=== PATIENT | male | born 1940 | race Caucasian/White ===

== ENCOUNTER → 2024-08-11 | Outpatient (CLI) | payer OTHER, SELFPAY ==
[2024-08-11 09:44] LABS: Basophils # (Auto) 0.1 Thou/mm3 (0.0-0.2); Basophils % (Auto) 1 % (0-2.5); Eosinophils # (Auto) 0.2 Thou/mm3 (0.0-0.5); Eosinophils % (Auto) 2 % (0-10); Hematocrit 38.6 % (41.0-53.0); Hemoglobin 12.7 g/dL (13.5-16.0); Immature Granulocytes % (Auto) 1 % (0-0); Immature Granulocytes Auto 0.04 Thou/mm3 (0.00-0.00); Lymphocytes # (Auto) 2.5 Thou/mm3 (1.0-4.8); Lymphocytes % (Auto) 31 % (10-50); Mean Corpuscular HGB Conc 32.9 g/dl (31.0-37.0); Mean Corpuscular Volume 88 fL (80-100); Monocytes # (Auto) 0.6 Thou/mm3 (0.0-0.8); Monocytes % (Auto) 7 % (0-12); Neutrophils # (Auto) 4.7 Thou/mm3 (1.8-7.7); Neutrophils % (Auto) 59 % (37-80); Nucleated Red Blood Cell % 0 /100 WBC (0); Platelet Count 282 Thou/mm3 (140-440); RDW Standard Deviation 44.1 fL (35.1-43.9); Red Blood Count 4.38 Miln/mm3 (4.50-5.90)
[2024-08-11 09:55] LABS: Collection Type, Urine Clean Catch
[2024-08-11 10:05] LABS: Alanine Aminotransferase 22 U/L (10-49); Albumin, Serum 4.3 gm/dL (3.4-4.8); Albumin/Globulin Ratio 1.7 (1.2-2.2); Alkaline Phosphatase 55 U/L (46-116); Anion Gap 8 (7-16); Aspartate Amino Transferase 17 U/L (0-34); BUN/Creatinine Ratio 14 Ratio (12-20); Bilirubin,Total 0.4 mg/dL (0.3-1.2); Blood Urea Nitrogen 14 mg/dL (9-23); Calcium 8.9 mg/dL (8.3-10.6); Calcium (Corrected) 8.9 mg/dL (8.5-10.1); Carbon Dioxide 27.2 mMol/L (20.0-31.0); Cardiac Risk Estimate 3.5 RATIO (4.0-6.7); Chloride 103 mMol/L (98-107); Cholesterol 90 mg/dL (132-200); Globulin 2.5 gm/dL (2.3-3.5); Glucose 116 mg/dL (74-106); HDL Cholesterol 26 mg/dL (40-60); LDL Cholesterol,Calculated 35 mg/dL (0-130); Osmolality,Calculated 277 (275-295); Potassium 3.9 mMol/L (3.4-5.1); Sodium 138 mMol/L (136-145); Thyroid Stimulating Hormone 2.18 uIU/mL (0.55-4.78); Total Protein 6.8 gm/dL (5.7-8.2); Triglycerides 143 mg/dL (30-150); eGFR > 60 See Note
[2024-08-11 11:07] LABS: Bilirubin,Urine Negative (Negative); Blood,Urine Negative (Negative); Clarity,Urine Hazy (Clear/Hazy); Color,Urine Lt-Yellow (Lt Yel-Yel); Glucose, Urine Negative (Negative); Ketones,Urine Negative (Negative); Leukocyte Esterase,Urine Positive (Negative); Nitrite,Urine Negative (Negative); Protein,Urine 1+ (Neg - Trace); RBC,Urine 7 /hpf (0-3); Specific Gravity,Urine 1.022 (1.001-1.035); Squamous Epithelial Cell,Urine 1 /hpf (0-5); Urobilinogen,Urine Negative mg/dL (0.0-1.0); WBC,Urine 25 /hpf (0-5)
[2024-08-14 17:48] LABS: PSA, Free 0.51 ng/mL; PSA, Total 1.6 ng/mL (< OR = 4.0)
== END | disposition home or self-care (01) ==
LOC: COPL 08:57
PROVIDERS: PCP Family Medicine; Referring Provider Family Medicine; Visit Provider Family Medicine
DX: I10 Essential (primary) hypertension (principal); E78.5 Hyperlipidemia, unspecified; R97.20 Elevated prostate specific antigen [PSA]
CPT/HCPCS: 36415; 80053; 80061; 81001; 84153; 84154; 84443; 85025

== ENCOUNTER → 2024-11-12 | Outpatient (CLI) | payer OTHER, SELFPAY ==
--- NOTE | 2024-11-12 13:30 | XR_ITS ---
Examination: Testicular sonography complete TECHNIQUE: Grayscale sonographic images testes, assessment arterial inflow venous outflow Doppler spectral analysis carful analysis Exam date and time: November 12, 2024 1354 hours INDICATIONS: Right testicular swelling beginning 2 weeks ago. FINDINGS: Right testis 4.6 x 2.5 x 3.4 cm Epididymis 16mm Appendix testis 6 mm Arterial flow testicle. No testicular mass Moderate hydrocele Left testis 4.0 x 2.4 x 2.6 cm Epididymis 23 mm Multiple left epididymal cysts, the largest 6 x 6 mm Arterial flow testicle No testicular mass although mildly heterogeneous echogenicity Mild hydrocele IMPRESSION: No testicular torsion or testicular mass Moderate right hydrocele Mildly heterogeneous echogenicity left testicle, recommend two-month follow-up left testicular sonography
== END | disposition home or self-care (01) ==
PROVIDERS: PCP Family Medicine; Referring Provider Family Medicine; Visit Provider Family Medicine
DX: N50.89 Other specified disorders of the male genital organs (principal); N43.2 Other hydrocele
CPT/HCPCS: 76870

== ENCOUNTER → 2025-02-09 | Outpatient (CLI) | payer OTHER, SELFPAY ==
--- NOTE | 2025-02-09 13:15 | XR_ITS ---
Examination: Testicular sonography complete TECHNIQUE: Grayscale sonographic images testes, assessment arterial inflow venous outflow Doppler spectral analysis carful analysis Date and time: February 09, 2025 1321 hours Comparison November 12, 2024 INDICATIONS: History testicular swelling and pain, moderate right hydrocele mildly heterogeneous echogenicity in the left testicle on sonogram November 12, 2024 FINDINGS: Right testis 3.9 cm epididymis 1.6 cm Arterial flow testicle. No testicular mass Prominent hydrocele Left testis 3.6 cm epididymis 1.8 cm Arterial flow testicle. No testicular mass Moderate left hydrocele IMPRESSION: No testicular torsion or testicular mass Left epididymitis Prominent right moderate left hydroceles
== END | disposition home or self-care (01) ==
LOC: CDIM 13:04
PROVIDERS: PCP Family Medicine; Referring Provider Family Medicine; Visit Provider Family Medicine
DX: N45.1 Epididymitis (principal); N43.2 Other hydrocele
CPT/HCPCS: 76870

== ENCOUNTER → 2025-03-10 | Outpatient (CLI) | payer OTHER, SELFPAY | END | disposition home or self-care (01) | PROVIDERS: PCP Family Medicine; Referring Provider Family Medicine; Visit Provider Family Medicine | DX: N30.00 Acute cystitis without hematuria (principal) ==

== ENCOUNTER → 2025-03-11 | Outpatient (CLI) | payer OTHER, SELFPAY ==
[2025-03-11 14:43] LABS: Collection Type, Urine Catheter; Squamous Epithelial Cell,Urine 0 /hpf (0-5)
[2025-03-11 16:47] LABS: Bilirubin,Urine Negative (Negative); Blood,Urine Negative (Negative); Clarity,Urine Clear (Clear/Hazy); Color,Urine Lt-Yellow (Lt Yel-Yel); Glucose, Urine Negative (Negative); Ketones,Urine Negative (Negative); Leukocyte Esterase,Urine Negative (Negative); Nitrite,Urine Negative (Negative); PH,Urine 6.5 (5.0-7.0); Protein,Urine Trace (Neg - Trace); RBC,Urine 3 /hpf (0-3); Specific Gravity,Urine 1.014 (1.001-1.035); Urobilinogen,Urine Negative mg/dL (0.0-1.0); WBC,Urine 2 /hpf (0-5)
== END | disposition home or self-care (01) ==
LOC: SLDO 14:33
PROVIDERS: PCP Family Medicine; Referring Provider Family Medicine; Visit Provider Family Medicine
DX: N30.00 Acute cystitis without hematuria (principal)
CPT/HCPCS: 81001; 87086

== ENCOUNTER 2025-03-27 08:00 | Emergency (ER) | payer OTHER, SELFPAY ==
[2025-03-27 08:03] VITALS: PULSE 74; RESP 18; O2SAT 98; BMI 28.5
--- NOTE | 2025-03-27 08:10 | EKG_ITS ---
[facility] Test Date: 2025-03-27 Pat Name: SERGIO ZHOU Department: Room: - Gender: Male Manager Paid: : 1940 Requested By: ED Temporary Provider Order Number: [id number] Reading MD: ED Temporary Provider Measurements Intervals [place] Rate: 77 P: 50 IN: 356 QRS: -5 QRSD: 105 T: 60 QT: 379 QTc: 430 Interpretive Statements ELECTRONIC ATRIAL PACEMAKER LOW QRS VOLTAGE IN PRECORDIAL LEADS [QRS DEFLECTION < 1.0 mV IN CHEST LEADS] NONSPECIFIC ST & T-WAVE ABNORMALITY ABNORMAL RHYTHM ECG Compared to ECG 07/13/2023 11:38:41 Low QRS voltage now present Sinus rhythm no longer present T-wave abnormality still present /store/S0/[id number]
[2025-03-27 08:15] VITALS: BP 141/74; PULSE 76; RESP 13; TEMP 36.5; O2SAT 94
--- NOTE | 2025-03-27 08:27 | PD.EDCHEST ---
ED Chest Pain RME/HPI General Chief Complaint: Chest Pain Stated Complaint: CHEST PAIN Time Seen by Provider: 03/27/25 08:28 Arrival date/time: 03/27/25 08:00 Limitations: no limitations RME / HPI RME / HPI narrative: DR. GARCIA MAIN ED EVALUATION: 84 year old male presents to the Emergency Department [facility] with complaint of chest pain onset yesterday 11 PM and been constant all night and this morning. EMS gave the patient ASA and nitro en route and that helped the pain. Pain is aching and constant, rated moderate. 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 mentioned that the patient had dental work yesterday, extraction work. PMHx: Colonic polyp resection 10/09/2023, CAD (7-9 stents, last one 2012, on Plavix), hypertension, DLP, s/p spinal stimulator due to sciatica (2022), hiatal hernia, and esophageal rings. Family history is significant for aortic aneurysm, dad at 73 . Social Hx: No tobacco, alcohol, or substance use. Related Data Home Medications ?Medication ?Instructions ?Recorded ?Confirmed gabapentin 100 mg capsule 100 mg PO TID 08/30/22 10/19/23 hydrocodone 5 mg-acetaminophen 325 1 tab PO Q12H PRN Pain 08/30/22 10/19/23 mg tablet pantoprazole 40 mg tablet,delayed 40 mg PO QDAY 08/30/22 10/19/23 release rosuvastatin 5 mg tablet 10 mg PO QDAY 08/30/22 10/19/23 clopidogrel 75 mg tablet (Plavix) 75 mg PO QDAY 07/16/23 10/19/23 Held on 10/21/23. Instructions: Resume on 10/26/23. Hold Plavix for 5 days more then resume it after that. losartan 50 mg tablet 50 mg PO QDAY 07/16/23 10/19/23 Allergies Allergy/AdvReac Type Severity Reaction Status Date / Time lidocaine Allergy Unknown Verified 08/31/22 20:17 procaine (From Novocain) Allergy Unknown Verified 08/31/22 20:17 Quinolones Allergy Unknown Verified 08/31/22 20:17 Review of Systems Review of Systems Systems Reviewed: All systems reviewed, normal except as documented Past Medical History Past Medical History CARDIAC: Positive Cardiac Disorders (9 stents last one done 2012), Myocardial Infarction, Coronary Artery Disease, Hypercholesterolemia and Hypertension GASTROINTESTINAL: Positive Gastrointestinal Disorders, Hiatal Hernia and Gastroesophageal Reflux Disease MUSCULOSKELETAL: Positive Musculoskeletal Disorders, Arthritis and Fractures (back) ENT: Positive Cataracts (justo) HEMATOLOGIC: Positive Blood Disorders and Clotting Problems PSYCHO/SOCIAL: Positive Anxiety OTHER HISTORY: Positive Cancer Family History FAMILY HISTORY: Positive Family Cardiac Disorders (dad heart failure), Family Cancer (brother prostate ca) and Family Surgery Surgical History SURGICAL: Positive Coronary Stent, Cardiac Catheterization, Nose Surgery (deveated septum) and Vasectomy Social History SMOKING STATUS: Never smoker SUBSTANCE USE: does not use ALCOHOL: Never ED Exam General Limitations: Present no limitations General appearance: Present alert and in no apparent distress Head Head exam: Present atraumatic, normocephalic and normal inspection Eye Eye exam: Present normal appearance, PERRL and EOMI ENT ENT exam: Present normal exam, normal oropharynx and mucous membranes moist Neck Neck exam: Present normal inspection, full ROM and trachea midline Chest Chest inspection: Present normal inspection and symmetric chest wall rise Respiratory Respiratory exam: Present normal lung sounds bilaterally Cardiovascular Cardiovascular exam: Present regular rate, normal rhythm, normal heart sounds and other (distant heart sounds) Abdominal Exam Abdominal exam: Present soft and normal bowel sounds Extremities Exam Extremities exam: Present normal inspection and full ROM Back Exam Back exam: Present normal inspection and full ROM Neurological Exam Neurological exam: Present alert, oriented X3 and CN II-XII intact Psychiatric Psychiatric exam: Present normal affect and normal mood Skin Skin exam: Present warm, dry, intact and normal color Course Quality Measures none Orders Category Date Time Status Bus Analyst STAT Care 03/27/25 09:58 Completed Continuous Pulse Oximetry ONCE Care 03/27/25 09:58 Completed EKG (ED ONLY) *Do not use* NOW Care 03/27/25 08:10 Completed EKG (ED ONLY) *Do not use* NOW Care 03/27/25 09:58 Completed Insert IV STAT Care 03/27/25 09:58 Completed EKG (ED Only) Stat Exams 03/27/25 08:10 Draft EKG (ED Only) Stat Exams 03/27/25 09:58 Ordered XR chest 1V portable Stat Exams 03/27/25 09:58 Completed B-Type Natriuretic Peptide Stat Lab 03/27/25 10:05 Completed CBC Stat Lab 03/27/25 10:05 Completed Comprehensive Metabolic Panel Stat Lab 03/27/25 10:05 Completed Magnesium Stat Lab 03/27/25 10:05 Completed Partial Thromboplastin Time Stat Lab 03/27/25 10:05 Completed Prothrombin Time with INR Stat Lab 03/27/25 10:05 Completed Troponin I Stat Lab 03/27/25 10:05 Completed Aspirin Chew Med 03/27/25 09:58 Discontinued 324 mg PO X1 ONE HYDROcodone*/APAP 5/325 [[place] 5/325] Med 03/27/25 12:30 Discontinued 1 tab PO X1 ONE Nitroglycerin [Nitrostat 1/150] Med 03/27/25 09:58 Active 0.4 mg SL Q5M PRN Ondansetron Inj [Zofran Inj] Med 03/27/25 09:58 Active 4 mg IVP Q1HR PRN Sodium Chloride 0.9% 1000 ml [Ns] 1,000 ml Med 03/27/25 09:58 Active IV 100 mls/hr Oxygen Delivery NOW RT 03/27/25 09:58 Active Vital Signs Vital signs: Vital Signs Temperature 97.7 F 03/27/25 08:15 Pulse Rate 76 03/27/25 08:15 Respiratory Rate 13 03/27/25 08:15 Blood Pressure 141/74 H 03/27/25 08:15 Pulse Oximetry (%) 94 L 03/27/25 08:15 Oxygen Delivery Method Room Air 03/27/25 08:15 Chest Pain MDM Narrative MDM Narrative:: I, Mariajose Valadez, am scribing for and in the presence of Dr. Garcia. Patient data External records reviewed:: [facility] previous records and EMS form Clinical information provided by:: patient and EMS Social determinants that could affect healthcare access:: none Patient has the following chronic illnesses:: Colonic polyp resection 10/09/2023, CAD (7-9 stents, last one 2012, on Plavix), hypertension, DLP, s/p spinal stimulator due to sciatica (2022), hiatal hernia, and esophageal rings. a How is presenting disease/condition affected by chronic disease/condition?: exacerbated by Evaluation data The following diagnostics were reviewed and interpreted by me:: lab results, radiology exam(s) and EKG tracing(s) (My interpretation: EKG performed at 0815 hours, electronic atrial pacemaker, rate 77, low QRS voltage in precordial leads) Lab and/or radiology exams considered but not ordered:: none Interpretation Summary: Procedure(s): XR chest 1V portable Accession Number(s): [id number] cc: Jerome Garcia MD; Hair Toribio MD; Radha Yarbrough MD~ Examination: AP chest single view Technique: AP portable upright chest single view Date and time: March 27, 2025, 1005 hrs. Comparison February 23, 2023 Indications: Chest pain today Findings: Mild enlargement cardiac contour Mild opacity left base Subsegmental atelectasis right base No pulmonary edema. Impression: Suspicious for early left base pneumonia Dictated By: Hair Toribio MD Medications / Prescriptions Medications or Prescriptions considered but not ordered:: none Medication administrations:: Medication Administration History Sodium Chloride (Ns) 1,000 mls @ 100 mls/hr IV .Q10H ONE Stop: 03/27/25 19:57 Last Admin: 03/27/25 10:15 Dose: 100 mls/hr Documented By: Nitroglycerin (Nitroglycerin 0.4 Mg Subl Btl #25) 0.4 mg SL Q5M PRN PRN Reason: CHEST PAIN Ondansetron HCl (Ondansetron Inj 2 Mg/Ml Inj 2 Ml) 4 mg IVP Q1HR PRN PRN Reason: PERSISTENT NAUSEA OR VOMITING Discontinued Medications Hydrocodone Bitart/Acetaminophen (Hydrocodone/Apap 5/325 Tablet) 1 tab PO X1 ONE Stop: 03/27/25 12:31 Last Admin: 03/27/25 12:35 Dose: 1 tab Documented By: Aspirin (Aspirin 81 Mg Chew) 324 mg PO X1 ONE Stop: 03/27/25 09:59 Last Admin: 03/27/25 10:05 Dose: Not Given Documented By: Non-Admin Reason: Cancelled by Provider see above if any Consultations Consultation(s) initiated? (list below): Yes Consultation #1 (Physician, Specialty, Details): Discussed test HPI, PMHx, lab, radiology results and/or management with glass cutting machine feeder Dr. Barahona. Recommends discharge, restart plavix and follow up as an outpatient if pain is persistent. Time: 12:55 Diagnosis Chest Pain Differential Diagnosis: stable angina, unstable angina pectoris, atypical chest pain, st elevation myocardial infarction, costochondritis and chest pain Most likely diagnosis given after review of the tests above:: Chest pain, uncertain cause Suspicious for early left base pneumonia, doubt Admission Indicated Admission indicated?: not indicated Admission Request Was there a request for admission?: No Disposition Plan Disposition Plan: Discharge Discharge Attestation Discharge Attestation: The patient and all family members were given an opportunity to ask questions and understood the discharge instructions. Discharge instructions specifically effects, indications for sooner follow up or return to the emergency department, and the expected course of current diagnosis. Patient condition: Stable Discharge Plan Plan Patient Disposition: HOME (Self Care) Patient condition on transfer: Stable Prescriptions/Referrals Prescriptions/Med Rec: No Action hydrocodone-acetaminophen 5-325 mg tablet 1 tab PO Q12H PRN (Reason: Pain) Patient Comments: TAKE 1 TABLET BY MOUTH EVERY 8 TO 12 HOURS NEEDED 30 DAYS pantoprazole 40 mg tablet,delayed release (DR/EC) 40 mg PO QDAY Patient Comments: TAKE 1 TABLET BY MOUTH EVERY DAY FOR 90 DAYS gabapentin 100 mg capsule 100 mg PO TID Patient Comments: TAKE 1 CAPSULE BY MOUTH THREE TIMES A DAY FOR 30 DAYS rosuvastatin 5 mg tablet 10 mg PO QDAY Patient Comments: TAKE 1 TABLET BY MOUTH EVERY DAY losartan 50 mg Tablet 50 mg PO QDAY clopidogrel [Plavix] 75 mg Tablet 75 mg PO QDAY Referrals: Radha Moss MD [Primary Care Provider] - 03/30/25 Robyn Barahona MD [Physician] - 03/30/25 Problem List Clinical Impression: Chest pain of uncertain etiology Impression comment: suspicious for early left base pneumonia, doubt Patient/Caregiver Discharge Instructions Education Materials: ED Chest Pain, Uncertain Cause Additional Instructions: Please follow-up with your primary care physician within 2-3 days. Return to the Emergency Department as needed. Dr. Barahona recommends restart plavix and follow up as an outpatient if pain is persistent. CXR: suspicious for early left base pneumonia, doubt. Please get a repeat CXR on Sunday with Dr. Barahona. Print Language: Swedish Stand Alone Forms: Leanne Award Info., Patient Portal Info Letter
--- NOTE | 2025-03-27 09:58 | XR_ITS ---
Examination: AP chest single view Technique: AP portable upright chest single view Date and time: March 27, 2025, 1005 hrs. Comparison February 23, 2023 Indications: Chest pain today Findings: Mild enlargement cardiac contour Mild opacity left base Subsegmental atelectasis right base No pulmonary edema. Impression: Suspicious for early left base pneumonia
--- NOTE | 2025-03-27 09:58 | EKG_ITS ---
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
[2025-03-27 10:08] VITALS: PULSE 69; RESP 16; RESP 96
[2025-03-27 10:09] VITALS: BP 122/77; PULSE 70; RESP 21; TEMP 36.7; O2SAT 96
[2025-03-27] MEDS: SODIUM CHLORIDE 0.9% 1000 ML 1,000 ML 100 ML IV (10:15)
[2025-03-27 10:24] LABS: Basophils # (Auto) 0.1 Thou/mm3 (0.0-0.2); Basophils % (Auto) 1 % (0-2.5); Eosinophils # (Auto) 0.1 Thou/mm3 (0.0-0.5); Eosinophils % (Auto) 1 % (0-10); Hematocrit 34.9 % (41.0-53.0); Hemoglobin 12.0 g/dL (13.5-16.0); Immature Granulocytes Auto 0.04 Thou/mm3 (0.00-0.00); Lymphocytes # (Auto) 1.4 Thou/mm3 (1.0-4.8); Lymphocytes % (Auto) 15 % (10-50); Mean Corpuscular HGB Conc 34.4 g/dl (31.0-37.0); Mean Corpuscular Hemoglobin 28.8 pg (25.0-35.0); Mean Corpuscular Volume 84 fL (80-100); Monocytes # (Auto) 0.6 Thou/mm3 (0.0-0.8); Monocytes % (Auto) 7 % (0-12); Neutrophils # (Auto) 7.1 Thou/mm3 (1.8-7.7); Neutrophils % (Auto) 76 % (37-80); Nucleated Red Blood Cell # 0.00 Thou/mm3 (0.00-0.00); Nucleated Red Blood Cell % 0 /100 WBC (0); Platelet Count 306 Thou/mm3 (140-440); RDW Standard Deviation 43.8 fL (35.1-43.9); Red Blood Count 4.16 Miln/mm3 (4.50-5.90); White Blood Count 9.4 Thou/mm3 (3.8-10.6)
[2025-03-27 10:43] LABS: INR 1.1 (0.9-1.3); Partial Thromboplastin Time 23.4 Seconds (22.0-36.0); Prothrombin Time 11.7 Seconds (9.0-12.2)
[2025-03-27 10:51] LABS: Alanine Aminotransferase 10 U/L (10-49); Albumin, Serum 3.6 gm/dL (3.4-4.8); Albumin/Globulin Ratio 1.3 (1.2-2.2); Alkaline Phosphatase 55 U/L (46-116); Anion Gap 8 (7-16); Aspartate Amino Transferase 15 U/L (0-34); BUN/Creatinine Ratio 8 Ratio (12-20); Bilirubin,Total 0.6 mg/dL (0.3-1.2); Blood Urea Nitrogen 10 mg/dL (9-23); Calcium 8.1 mg/dL (8.3-10.6); Calcium (Corrected) 8.4 mg/dL (8.5-10.1); Carbon Dioxide 24.5 mMol/L (20.0-31.0); Chloride 101 mMol/L (98-107); Creatinine (Component) 1.2 mg/dL (0.6-1.3); Estimated Creatinine Clearance 52.4 mL/min (>60); Globulin 2.7 gm/dL (2.3-3.5); Glucose 101 mg/dL (74-106); Magnesium 1.9 mg/dL (1.6-2.6); Osmolality,Calculated 265 (275-295); Potassium 4.3 mMol/L (3.4-5.1); Sodium 133 mMol/L (136-145); Total Protein 6.3 gm/dL (5.7-8.2); Troponin I < 0.020 ng/mL (0.0-0.045); eGFR 59 See Note
[2025-03-27 11:48] LABS: B-Type Natriuretic Peptide < 20 pg/mL (0-100)
[2025-03-27] MEDS: HYDROcodone/APAP 5/325 TABLET 1 TAB PO (12:35)
[2025-03-27 12:36] VITALS: BP 146/90; PULSE 71; RESP 19; TEMP 36.7; O2SAT 96
== END 2025-03-27 13:28 | disposition home or self-care (01) ==
PROVIDERS: Emergency Provider Family Medicine; PCP Family Medicine
DX: R07.9 Chest pain, unspecified (principal); R94.31 Abnormal electrocardiogram [ECG] [EKG]; I10 Essential (primary) hypertension; I25.10 Atherosclerotic heart disease of native coronary artery without angina pectoris; E78.00 Pure hypercholesterolemia, unspecified; I25.2 Old myocardial infarction; Z95.5 Presence of coronary angioplasty implant and graft; Z95.0 Presence of cardiac pacemaker
CPT/HCPCS: 36415; 71045; 80053; 83735; 83880; 84484; 85025; 85610; 85730; 99283; J7030; A9270

== ENCOUNTER → 2025-04-14 | Outpatient (CLI) | payer OTHER, SELFPAY ==
[2025-04-14 13:58] LABS: Collection Type, Urine Clean Catch
[2025-04-14 14:12] LABS: Basophils # (Auto) 0.0 Thou/mm3 (0.0-0.2); Basophils % (Auto) 0 % (0-2.5); Eosinophils # (Auto) 0.1 Thou/mm3 (0.0-0.5); Eosinophils % (Auto) 1 % (0-10); Hematocrit 35.5 % (41.0-53.0); Hemoglobin 12.4 g/dL (13.5-16.0); Immature Granulocytes Auto 0.05 Thou/mm3 (0.00-0.00); Lymphocytes # (Auto) 1.4 Thou/mm3 (1.0-4.8); Lymphocytes % (Auto) 18 % (10-50); Mean Corpuscular HGB Conc 34.9 g/dl (31.0-37.0); Mean Corpuscular Hemoglobin 28.8 pg (25.0-35.0); Mean Corpuscular Volume 83 fL (80-100); Monocytes # (Auto) 0.7 Thou/mm3 (0.0-0.8); Monocytes % (Auto) 9 % (0-12); Neutrophils # (Auto) 5.4 Thou/mm3 (1.8-7.7); Neutrophils % (Auto) 70 % (37-80); Nucleated Red Blood Cell # 0.00 Thou/mm3 (0.00-0.00); Nucleated Red Blood Cell % 0 /100 WBC (0); Platelet Count 333 Thou/mm3 (140-440); RDW Standard Deviation 40.2 fL (35.1-43.9); Red Blood Count 4.30 Miln/mm3 (4.50-5.90); White Blood Count 7.8 Thou/mm3 (3.8-10.6)
[2025-04-14 14:25] LABS: Anion Gap 8 (7-16); BUN/Creatinine Ratio 8 Ratio (12-20); Blood Urea Nitrogen 10 mg/dL (9-23); Calcium 8.8 mg/dL (8.3-10.6); Carbon Dioxide 25.7 mMol/L (20.0-31.0); Chloride 84 mMol/L (98-107); Creatinine (Component) 1.3 mg/dL (0.6-1.3); Glucose 107 mg/dL (74-106); Osmolality,Calculated 237 (275-295); Potassium 4.8 mMol/L (3.4-5.1); eGFR 54 See Note
[2025-04-14 14:28] LABS: Bacteria,Urine Rare; Bilirubin,Urine Negative (Negative); Blood,Urine Negative (Negative); Clarity,Urine Clear (Clear/Hazy); Color,Urine Lt-Yellow (Lt Yel-Yel); Culture Indicated,Urine Not Indicated; Glucose, Urine Negative (Negative); Ketones,Urine Negative (Negative); Leukocyte Esterase,Urine Negative (Negative); Nitrite,Urine Negative (Negative); PH,Urine 6.5 (5.0-7.0); Protein,Urine Trace (Neg - Trace); RBC,Urine 4 /hpf (0-3); Specific Gravity,Urine 1.012 (1.001-1.035); Squamous Epithelial Cell,Urine < 1 /hpf (0-5); Urobilinogen,Urine Negative mg/dL (0.0-1.0); WBC,Urine 2 /hpf (0-5)
[2025-04-14 14:53] LABS: Sodium 118 mMol/L (136-145)
== END | disposition home or self-care (01) ==
LOC: COPL 13:37
PROVIDERS: PCP Family Medicine; Referring Provider Family Medicine; Visit Provider Family Medicine
DX: N13.30 Unspecified hydronephrosis (principal)
CPT/HCPCS: 36415; 80048; 81001; 85025

== ENCOUNTER → 2025-04-27 | Outpatient (CLI) | payer OTHER, SELFPAY ==
[2025-04-27 16:04] LABS: Basophils # (Auto) 0.1 Thou/mm3 (0.0-0.2); Basophils % (Auto) 1 % (0-2.5); Eosinophils # (Auto) 0.2 Thou/mm3 (0.0-0.5); Eosinophils % (Auto) 2 % (0-10); Hematocrit 35.6 % (41.0-53.0); Hemoglobin 11.6 g/dL (13.5-16.0); Immature Granulocytes Auto 0.03 Thou/mm3 (0.00-0.00); Lymphocytes # (Auto) 1.6 Thou/mm3 (1.0-4.8); Lymphocytes % (Auto) 20 % (10-50); Mean Corpuscular HGB Conc 32.6 g/dl (31.0-37.0); Mean Corpuscular Hemoglobin 28.6 pg (25.0-35.0); Mean Corpuscular Volume 88 fL (80-100); Monocytes # (Auto) 0.7 Thou/mm3 (0.0-0.8); Monocytes % (Auto) 9 % (0-12); Neutrophils # (Auto) 5.6 Thou/mm3 (1.8-7.7); Neutrophils % (Auto) 69 % (37-80); Nucleated Red Blood Cell # 0.00 Thou/mm3 (0.00-0.00); Nucleated Red Blood Cell % 0 /100 WBC (0); Platelet Count 323 Thou/mm3 (140-440); RDW Standard Deviation 45.5 fL (35.1-43.9); Red Blood Count 4.06 Miln/mm3 (4.50-5.90); White Blood Count 8.2 Thou/mm3 (3.8-10.6)
[2025-04-27 16:21] LABS: Alanine Aminotransferase 10 U/L (10-49); Albumin, Serum 4.0 gm/dL (3.4-4.8); Albumin/Globulin Ratio 1.5 (1.2-2.2); Alkaline Phosphatase 59 U/L (46-116); Anion Gap 9 (7-16); Aspartate Amino Transferase 17 U/L (0-34); BUN/Creatinine Ratio 9 Ratio (12-20); Bilirubin,Total 0.4 mg/dL (0.3-1.2); Blood Urea Nitrogen 13 mg/dL (9-23); Calcium 8.6 mg/dL (8.3-10.6); Calcium (Corrected) 8.6 mg/dL (8.5-10.1); Carbon Dioxide 27.4 mMol/L (20.0-31.0); Chloride 97 mMol/L (98-107); Creatinine (Component) 1.5 mg/dL (0.6-1.3); Globulin 2.6 gm/dL (2.3-3.5); Glucose 113 mg/dL (74-106); Osmolality,Calculated 267 (275-295); Potassium 4.5 mMol/L (3.4-5.1); Sodium 133 mMol/L (136-145); Total Protein 6.6 gm/dL (5.7-8.2); eGFR 45 See Note
== END | disposition home or self-care (01) ==
LOC: COPL 15:06
PROVIDERS: PCP Family Medicine; Referring Provider Family Medicine; Visit Provider Family Medicine
DX: N17.9 Acute kidney failure, unspecified (principal)
CPT/HCPCS: 36415; 80053; 85025